=== PATIENT | female | born 1945 ===

== ENCOUNTER 2025-03-28 15:01 | Inpatient (IN) | payer OTHER ==
[~2025-03-28] VITALS: Ht 152.4 cm; Wt 90.7 kg
[~2025-03-28 15:01] MED LIST: AVIDOXY100 MG PO; DICLOFENAC SOD100 MG; INTESTINEX680 M1 PO; LEVOFLOXACIN500 MG PO; LISINOPRIL HCTZ; LISINOPRIL2.5 MG PO; METHOTREXATE2.5 MG; MICRO-K 1010 MEQ PO; NEURONTIN300 MG; PERCOCET 5/321 UDTAB; PLAVIX75 MG; PREDNISONE5 MG/DOSE-; PROTEINEX-18 LI30 ML PO; SPIRONOLACTONE25 MG; SYNTHROID200 MCG; TENORMIN25 MG; TRAMADOL HCL-AP1 TAB; VYTORIN 10/40 T1 TAB; ZANAFLEX2 MG
[2025-03-28] MEDS ORDERED: NOREPINEPHRINE BITARTRATE 1 MG/ML AMPUL IV ONE (16:10)
[2025-03-28 16:30] LABS: BASO % 0.6 % (0.1-1.2); EOS # 0.81 (0.04-0.54); EOS % 5.6 % (0.7-7.0); LYMPH # 1.24 (1.18-3.74); LYMPH % 8.6 % (19.3-53.1); MEAN PLATELET VOLUME 9.50 fl (9.4-12.4); MONO # 1.91 (0.24-0.82); NEUT # 10.31 (1.56-6.13); NEUT % 71.2 % (34.0-71.1); RED CELL DISTRIBUTION WIDTH 18.4 % (11.6-14.4)
[2025-03-28] MEDS ORDERED: NOREPINEPHRINE BITARTRATE 4 MG in DEXTROSE 5 % IN WATER 250 ML IV SCH (16:30)
[2025-03-28 16:36] LABS: MONO % 13.2 % (4.7-12.5)
[2025-03-28 16:41] LABS: ERYTHROCYTE SEDIMENTATION RATE > 130 mm/hr (0-30)
[2025-03-28] MEDS ORDERED: 0.9 % SODIUM CHLORIDE 500 ML IV ONE (16:45)
[2025-03-28] MEDS ORDERED: DEXTROSE 50 % IN WATER 0.5 G/ML DISP.SYRIN IV PRN (16:45)
[2025-03-28] MEDS ORDERED: FAMOTIDINE/PF 20 MG/2 ML VIAL IV PUSH ONE (16:45)
[2025-03-28] MEDS ORDERED: INSULIN LISPRO 1,000 UNIT/10 ML UNITS SUBCUTANEO PRN (16:45)
[2025-03-28] MEDS ORDERED: LEVALBUTEROL HCL 1.25 MG/3 ML SOLUTION IH SCH (16:45)
[2025-03-28] MEDS ORDERED: METHYLPREDNISOLONE SOD SUCC 125 MG VIAL IV ONE (16:45)
[2025-03-28] MEDS ORDERED: IPRATROPIUM BROMIDE 0.5 MG/2.5 ML AMPUL.NEB IH SCH (16:45)
[2025-03-28] MEDS ORDERED: LEVALBUTEROL HCL 1.25 MG/3 ML SOLUTION IH ONE (16:47)
[2025-03-28] MEDS ORDERED: IPRATROPIUM BROMIDE 0.5 MG/2.5 ML AMPUL.NEB IH ONE (16:48)
[2025-03-28 16:53] LABS: INR 1.27
[2025-03-28] MEDS ORDERED: METHYLPREDNISOLONE SOD SUCC 125 MG VIAL ONE (16:55)
[2025-03-28] MEDS ORDERED: FAMOTIDINE/PF 20 MG/2 ML VIAL ONE (16:55)
[2025-03-28] MEDS ORDERED: LEVALBUTEROL HCL 0.63 MG/3 ML SOLUTION IH SCH (17:00)
[2025-03-28 17:18] LABS: ABG PH 7.443 (7.35-7.45)
[2025-03-28 17:19] LABS: ABG PO2 139.3 mmHg (80-100); BICARBONATE 32.2 mmol/l (23-25); o2 32 %
[2025-03-28 17:38] LABS: ALT/SGPT 23.0 U/L (12-78); AST/SGOT 115.0 U/L (15-37); BILIRUBIN TOTAL 0.52 mg/dL (0.3-1.2); BUN CREA RATIO 16.0 (7.0-25.0); CREATININE SERUM 2.01 mg/dL (0.55-1.02); GFR 23.77; GLOBULINA 4.1 G/DL (2.4-3.5); GLUCOSE FASTING 143.0 mg/dL (65-100); OSMOLALITY SERUM 284.0 MOSM/KG (275-295)
[2025-03-28 17:38] LABS: URINE APPEARANCE Cloudy; URINE BILIRRUBIN Small (NEGATIVE); URINE BLOOD Large; URINE COLOR Dark Yellow; URINE KETONE Trace (NEGATIVE); URINE LEUKOCYTE Moderate; URINE NITRATE Negative; URINE UROBILINOGEN 1.0 E.U./dl
[2025-03-28 17:42] LABS: URINE BACTERIA 465.5 uL (0.0-1933); URINE EPITHELIAL CELLS 22.9 uL (0.0-38.8); URINE WBC 114.7 uL (0.0-23.2)
[2025-03-28 17:45] LABS: CKMB 14.3 NG/ML (0.5-3.6); PHOSPHOKINASE CREATININE 2134.0 U/L (26-192)
[2025-03-28 17:51] LABS: URINE CAST > 21.83 uL (0.0-1.40); URINE GLUCOSE 100 MG/DL (NEGATIVE); URINE PROTEIN 100 (NEGATIVE)
[2025-03-28 18:09] LABS: URINE MUCUS SCANT
[2025-03-28 18:10] LABS: TYPE CELLS SQUAMOUS; URINE CRYSTALS FEW /HPF; URINE RBC 297.7 uL (0.0-20.8)
[2025-03-28] MEDS ORDERED: ALBUMIN HUMAN-25 0.25GM/ML (50ML) VIAL IV ONE (19:30)
[2025-03-28] MEDS ORDERED: CEFTRIAXONE SODIUM 2,000 MG VIAL IV ONE (19:30)
[2025-03-28] MEDS ORDERED: CEFTRIAXONE SODIUM 2,000 MG VIAL ONE (19:55)
[2025-03-29] VITALS (11 sets, daily range): BP systolic 109–144; BP diastolic 54–87; O2SAT 98–100
[2025-03-29] MEDS ORDERED: NOREPINEPHRINE BITARTRATE 1 MG/ML AMPUL IV ONE (01:11)
[2025-03-29] MEDS ORDERED: CHLORHEXIDINE GLUCONATE 120 ML BOTTLE TOP ONE (07:58)
[2025-03-29] MEDS ORDERED: PANTOPRAZOLE SODIUM 40 MG in 0.9 % SODIUM CHLORIDE 8 ML IV PUSH SCH (12:25)
[2025-03-29] MEDS ORDERED: ENOXAPARIN SODIUM 30 MG/0.3 ML SYRINGE SUBCUTANEO SCH (12:26)
[2025-03-29] MEDS ORDERED: 0.9 % SODIUM CHLORIDE 1,000 ML IV SCH (12:30)
[2025-03-29] MEDS ORDERED: ACETAMINOPHEN 325 MG TABLET PO PRN (12:30)
[2025-03-29] MEDS ORDERED: IPRATROPIUM/ALBUTEROL SULFATE 3 ML AMPUL.NEB IH SCH (12:39)
[2025-03-29] MEDS ORDERED: AMINO ACIDS/PROTEIN HYDROLYS 30 ML BLIST.PACK PO SCH (12:44)
[2025-03-29] MEDS ORDERED: GABAPENTIN 300 MG CAPSULE PO PRN (12:45)
[2025-03-29] MEDS ORDERED: PIPERACILLIN/TAZOBACTAM SODIUM 3.375 GM VIAL IV SCH (13:00)
[2025-03-29 14:58] LABS: CKMB 6.2 NG/ML (0.5-3.6); PHOSPHOKINASE CREATININE 686.0 U/L (26-192)
[2025-03-29] MEDS ORDERED: IPRATROPIUM/ALBUTEROL SULFATE 3 ML AMPUL.NEB IH ONE (16:55)
[2025-03-29] MEDS ORDERED: FLUCONAZOLE IN NACL,ISO-OSM 50 ML IV SCH (16:57)
[2025-03-29] MEDS ORDERED: MEROPENEM 500 MG/VIAL VIAL IV SCH (17:00)
[2025-03-29] MEDS ORDERED: LACTOBACILLUS ACIDOPHILUS 1 CAP CAP PO SCH (17:00)
[2025-03-29] MEDS ORDERED: ALBUMIN HUMAN-25 0.25GM/ML (50ML) VIAL IV SCH (17:00)
[2025-03-29] MEDS ORDERED: LINEZOLID IN DEXTROSE 5% 300 ML IV SCH (21:00)
[2025-03-30] VITALS (16 sets, daily range): BP systolic 80–134; BP diastolic 42–87; O2SAT 98–100
[2025-03-30] MEDS ORDERED: LEVOTHYROXINE SODIUM 100 MCG TABLET PO ONE (00:45)
[2025-03-30] MEDS ORDERED: LEVOTHYROXINE SODIUM 100 MCG TABLET PO SCH (06:00)
[2025-03-30 06:25] LABS: BASO % 0.2 % (0.1-1.2); EOS # 0.00 (0.04-0.54); EOS % 0.0 % (0.7-7.0); LYMPH # 0.81 (1.18-3.74); LYMPH % 6.8 % (19.3-53.1); MEAN PLATELET VOLUME 9.50 fl (9.4-12.4); MONO # 1.35 (0.24-0.82); MONO % 11.3 % (4.7-12.5); NEUT # 9.65 (1.56-6.13); NEUT % 80.8 % (34.0-71.1); RED CELL DISTRIBUTION WIDTH 17.7 % (11.6-14.4)
[2025-03-30 07:07] LABS: ALT/SGPT 26.0 U/L (12-78); AST/SGOT 56.0 U/L (15-37); BILIRUBIN TOTAL 0.4 mg/dL (0.3-1.2); BUN CREA RATIO 24.0 (7.0-25.0); CREATININE SERUM 1.54 mg/dL (0.55-1.02); GFR 32.33; GLOBULINA 4.1 G/DL (2.4-3.5); GLUCOSE FASTING 179.0 mg/dL (65-100); OSMOLALITY SERUM 293.0 MOSM/KG (275-295)
[2025-03-30] MEDS ORDERED: Cyanocobalamin/Mecobalamin 1 TAB.SL SL NR (15:30)
[2025-03-30] MEDS ORDERED: FLUCONAZOLE IN NACL,ISO-OSM 2 MG/ML ML IV SCH (17:00)
[2025-03-30] MEDS ORDERED: SOD FERRIC GLUC COMPLX/SUCROSE 62.5 MG in 0.9 % SODIUM CHLORIDE 50 ML IV SCH (17:00)
[2025-03-30] MEDS ORDERED: MULTIVIT INFUSN,ADULT 4,VIT K 10 ML VIAL IV SCH (17:00)
[2025-03-30] MEDS ORDERED: METHYLPREDNISOLONE SOD SUCC 40 MG VIAL IV SCH (21:00)
[2025-03-31] VITALS (7 sets, daily range): BP systolic 71–152; BP diastolic 29–81; O2SAT 98–100
[2025-03-31] MEDS ORDERED: HYDROCORTISONE SODIUM SUCC/PF 200 MG in 0.9 % SODIUM CHLORIDE 250 ML IV SCH (07:15)
[2025-03-31] MEDS ORDERED: Cyanocobalamin/Mecobalamin 1 TAB.SL SL SCH (09:00)
[2025-03-31] MEDS ORDERED: MIDODRINE HCL 5 MG TABLET PO SCH (09:00)
[2025-04-01 01:56] LABS: BASO % 0.1 % (0.1-1.2); EOS # 0.00 (0.04-0.54); EOS % 0.0 % (0.7-7.0); LYMPH # 0.50 (1.18-3.74); LYMPH % 6.9 % (19.3-53.1); MEAN PLATELET VOLUME 9.20 fl (9.4-12.4); MONO # 0.73 (0.24-0.82); MONO % 10.1 % (4.7-12.5); NEUT # 5.95 (1.56-6.13); NEUT % 82.3 % (34.0-71.1); RED CELL DISTRIBUTION WIDTH 18.6 % (11.6-14.4)
[2025-04-01 02:21] LABS: ALT/SGPT 45.0 U/L (12-78); AST/SGOT 96.0 U/L (15-37); BILIRUBIN TOTAL 0.49 mg/dL (0.3-1.2); BUN CREA RATIO 32.0 (7.0-25.0); CREATININE SERUM 1.03 mg/dL (0.55-1.02); GFR 51.43; GLOBULINA 3.4 G/DL (2.4-3.5); PHOSPHOKINASE CREATININE 83.0 U/L (26-192)
[2025-04-01 02:22] LABS: GLUCOSE FASTING 209.0 mg/dL (65-100); OSMOLALITY SERUM 293.0 MOSM/KG (275-295)
[2025-04-01 04:15] VITALS: BP 136/69; O2SAT 100
[2025-04-01] MEDS ORDERED: LEVOTHYROXINE SODIUM 100 MCG/VIAL VIAL IV STA (07:21)
[2025-04-01 07:41] VITALS: BP 151/74; O2SAT 100
[2025-04-01] MEDS ORDERED: INSULIN NPH HUMAN ISOPHANE 1,000 UNITS/10 ML UNITS SUBCUTANEO SCH (09:00)
[2025-04-01 12:07] VITALS: BP 148/67; O2SAT 100
[2025-04-01] MEDS ORDERED: POTASSIUM CHLORIDE IN WATER 100 ML IV NR (14:30)
[2025-04-01 15:00] VITALS: BP 169/71; O2SAT 100
[2025-04-01 20:00] VITALS: BP 157/97; O2SAT 100
[2025-04-01 23:27] VITALS: BP 171/91; O2SAT 100
[2025-04-02] VITALS (7 sets, daily range): BP systolic 145–166; BP diastolic 71–82; O2SAT 100
[2025-04-02 08:30] LABS: BUN CREA RATIO 35.0 (7.0-25.0); CREATININE SERUM 0.74 mg/dL (0.55-1.02); GFR 75.32; GLUCOSE FASTING 155.0 mg/dL (65-100); OSMOLALITY SERUM 293.0 MOSM/KG (275-295)
[2025-04-02] MEDS ORDERED: ZINC OXIDE 30 GM,NYSTATIN 15 GM,SILVER SULFADIAZINE 50 GM TOP SCH ×2 (11:37→17:00)
[2025-04-02] MEDS ORDERED: CHOLESTYRAMINE/ASPARTAME LIGHT 4 G/PKT PACKET PO SCH (11:37)
[2025-04-02] MEDS ORDERED: MAGNESIUM SULFATE IN WATER 4 GM/100 ML PIGGYBACK IV NR (12:00)
[2025-04-02] MEDS ORDERED: LOPERAMIDE HCL 2 MG CAPSULE PO SCH (13:00)
[2025-04-02] MEDS ORDERED: HYDROCORTISONE SODIUM SUCC/PF 50 MG/ML ML IV SCH ×2 (17:00→21:00)
[2025-04-02] MEDS ORDERED: POTASSIUM PHOS,M-BASIC-D-BASIC 3 MM/ML VIAL IV NR (17:00)
[2025-04-02] MEDS ORDERED: POTASSIUM BICARBONATE/CIT AC 25 MEQ TABLET.EFF PO SCH (17:00)
[2025-04-03] VITALS (8 sets, daily range): BP systolic 102–176; BP diastolic 58–94; O2SAT 100
[2025-04-03] MEDS ORDERED: HYDROCORTISONE SODIUM SUCC/PF 50 MG/ML ML IV SCH (05:00)
[2025-04-03] MEDS ORDERED: SILVER SULFADIAZINE 50 GM JAR TOP ONE (08:37)
[2025-04-03 15:38] LABS: ob POSITIVE (NEGATIVE)
[2025-04-04 02:03] LABS: BASO % 0.1 % (0.1-1.2); EOS # 0.00 (0.04-0.54); EOS % 0.0 % (0.7-7.0); LYMPH # 0.86 (1.18-3.74); LYMPH % 10.1 % (19.3-53.1); MEAN PLATELET VOLUME 9.50 fl (9.4-12.4); MONO # 0.97 (0.24-0.82); MONO % 11.4 % (4.7-12.5); NEUT # 6.51 (1.56-6.13); NEUT % 76.9 % (34.0-71.1); RED CELL DISTRIBUTION WIDTH 18.1 % (11.6-14.4)
[2025-04-04 03:06] LABS: ALT/SGPT 55.0 U/L (12-78); AST/SGOT 55.0 U/L (15-37); BILIRUBIN TOTAL 1.17 mg/dL (0.3-1.2); BUN CREA RATIO 38.0 (7.0-25.0); CREATININE SERUM 0.69 mg/dL (0.55-1.02); GFR 81.65; GLOBULINA 2.2 G/DL (2.4-3.5)
[2025-04-04 03:23] LABS: GLUCOSE FASTING 211.0 mg/dL (65-100); OSMOLALITY SERUM 298.0 MOSM/KG (275-295)
[2025-04-04 04:00] VITALS: BP 141/71; O2SAT 100
[2025-04-04] MEDS ORDERED: HYDROCORTISONE SODIUM SUCC/PF 50 MG/ML ML IV SCH (05:00)
[2025-04-04 07:20] VITALS: BP 131/62; O2SAT 100
[2025-04-04] MEDS ORDERED: POTASSIUM CHLORIDE IN WATER 40 MEQ/100 ML PIGGYBAG IV SCH ×2 (08:00→17:00)
[2025-04-04] MEDS ORDERED: PREDNISONE 10 MG TABLET PO SCH (09:00)
[2025-04-04] MEDS ORDERED: POTASSIUM PHOS,M-BASIC-D-BASIC 15 MM in 0.9 % SODIUM CHLORIDE 250 ML IV ONE (11:00)
[2025-04-04] MEDS ORDERED: MAGNESIUM SULFATE IN WATER 4 GM/100 ML PIGGYBACK IV NR (12:00)
[2025-04-04 12:30] VITALS: BP 159/89; O2SAT 100
[2025-04-04] MEDS ORDERED: ONDANSETRON HCL 2 MG/ML VIAL ONE (12:44)
[2025-04-04] MEDS ORDERED: ONDANSETRON HCL 2 MG/ML VIAL IV SCH (13:00)
[2025-04-04] MEDS ORDERED: DIPHENHYDRAMINE HCL 50 MG/ML VIAL 1ML IV NR (16:30)
[2025-04-04] MEDS ORDERED: METHYLPREDNISOLONE SOD SUCC 40 MG VIAL IV NR (16:30)
[2025-04-04 17:55] VITALS: BP 141/76; O2SAT 100
[2025-04-04] MEDS ORDERED: POTASSIUM PHOS,M-BASIC-D-BASIC 15 MM in 0.9 % SODIUM CHLORIDE 250 ML IV NR (18:00)
[2025-04-04] MEDS ORDERED: MAGNESIUM SULFATE IN WATER 2 GM/50 ML PIGGYBAG IV NR (18:15)
[2025-04-04 20:07] VITALS: BP 116/52; O2SAT 98
[2025-04-04 23:31] VITALS: BP 126/58; O2SAT 100
[2025-04-05 04:00] VITALS: BP 135/58; O2SAT 100
[2025-04-05 06:54] LABS: BASO % 0.1 % (0.1-1.2); EOS # 0.01 (0.04-0.54); EOS % 0.1 % (0.7-7.0); LYMPH # 0.94 (1.18-3.74); LYMPH % 13.2 % (19.3-53.1); MEAN PLATELET VOLUME 10.50 fl (9.4-12.4); MONO # 0.95 (0.24-0.82); NEUT # 5.14 (1.56-6.13); NEUT % 72.2 % (34.0-71.1); RED CELL DISTRIBUTION WIDTH 18.2 % (11.6-14.4)
[2025-04-05 07:08] LABS: MONO % 13.3 % (4.7-12.5)
[2025-04-05 07:18] VITALS: BP 133/58; O2SAT 100
[2025-04-05] MEDS ORDERED: METHYLPREDNISOLONE SOD SUCC 40 MG VIAL IV SCH (09:00)
[2025-04-05 10:01] LABS: ALT/SGPT 52.0 U/L (12-78); AST/SGOT 41.0 U/L (15-37); BILIRUBIN TOTAL 1.44 mg/dL (0.3-1.2); BUN CREA RATIO 44.0 (7.0-25.0); CHOL HDL RATIO 3.2 (0-5.0); CREATININE SERUM 0.52 mg/dL (0.55-1.02); GFR 113.17; GLOBULINA 2.6 G/DL (2.4-3.5); GLUCOSE FASTING 91.0 mg/dL (65-100); HDL 40.0 mg/dl (40-60); LDL 72.0 mg/dl (0-130); OSMOLALITY SERUM 294.0 MOSM/KG (275-295); VLDL 16.0 (0-39)
[2025-04-05 15:38] VITALS: O2SAT 100
[2025-04-05 15:56] LABS: BUN CREA RATIO 37.0 (7.0-25.0); CHOL HDL RATIO 3.4 (0-5.0); CREATININE SERUM 0.67 mg/dL (0.55-1.02); GFR 84.47; GLUCOSE FASTING 175.0 mg/dL (65-100); HDL 39.0 mg/dl (40-60); LDL 75.0 mg/dl (0-130); OSMOLALITY SERUM 295.0 MOSM/KG (275-295); VLDL 20.0 (0-39)
[2025-04-05 15:58] LABS: COL EPI 182.0 SECONDS (82-175)
[2025-04-05 16:11] LABS: COL ADP 105.0 SECONDS (56-102)
[2025-04-05 16:36] LABS: INR 1.26
[2025-04-05] MEDS ORDERED: AA 3.31 %/D9.8W/FAT/E-LYTES 10 2,053 ML IV SCH (17:00)
[2025-04-05 20:00] VITALS: BP 168/83; O2SAT 100
[2025-04-05 23:23] VITALS: BP 144/66; O2SAT 100
[2025-04-06] VITALS (8 sets, daily range): BP systolic 107–167; BP diastolic 60–95; O2SAT 100
[2025-04-06 07:14] LABS: BASO % 0.1 % (0.1-1.2); EOS # 0.00 (0.04-0.54); EOS % 0.0 % (0.7-7.0); LYMPH # 0.65 (1.18-3.74); LYMPH % 9.7 % (19.3-53.1); MEAN PLATELET VOLUME 9.90 fl (9.4-12.4); MONO # 0.85 (0.24-0.82); NEUT # 5.06 (1.56-6.13); NEUT % 75.9 % (34.0-71.1); RED CELL DISTRIBUTION WIDTH 17.9 % (11.6-14.4)
[2025-04-06 07:27] LABS: MONO % 12.7 % (4.7-12.5)
[2025-04-06 08:04] LABS: FE 104.0 ug/dl (50-170)
[2025-04-06] MEDS ORDERED: MULTIVIT INFUSN,ADULT 4,VIT K 10 ML VIAL IV SCH (09:00)
[2025-04-06] MEDS ORDERED: SOD FERRIC GLUC COMPLX/SUCROSE 62.5 MG/5 ML AMPUL IV SCH (09:00)
[2025-04-06 09:06] LABS: FOLIC ACID 5.74 ng/ml (4.78-20)
[2025-04-06] MEDS ORDERED: FLUCONAZOLE 100 MG TABLET PO SCH (17:00)
[2025-04-06] MEDS ORDERED: DIPHENHYDRAMINE HCL 50 MG/ML VIAL 1ML IV STA (17:37)
[2025-04-06] MEDS ORDERED: DIPHENHYDRAMINE HCL 50 MG/ML VIAL 1ML IV PRN (17:45)
[2025-04-07] VITALS (12 sets, daily range): BP systolic 111–160; BP diastolic 55–91; O2SAT 98–100
[2025-04-07] MEDS ORDERED: METHYLPREDNISOLONE SOD SUCC 40 MG VIAL IV SCH (09:00)
[2025-04-07] MEDS ORDERED: hydrALAZINE HCL 20 MG VIAL IV PRN (14:30)
[2025-04-07] MEDS ORDERED: HYDROCORTISONE 29 G,NYSTATIN 30 GM TOP SCH (17:00)
[2025-04-08 04:00] VITALS: BP 123/66; O2SAT 100
[2025-04-08 07:33] VITALS: BP 140/72; O2SAT 100
[2025-04-08 08:07] LABS: BASO % 0.3 % (0.1-1.2); EOS # 0.03 (0.04-0.54); EOS % 0.3 % (0.7-7.0); LYMPH # 1.39 (1.18-3.74); LYMPH % 13.1 % (19.3-53.1); MEAN PLATELET VOLUME 11.20 fl (9.4-12.4); MONO # 1.50 (0.24-0.82); NEUT # 7.19 (1.56-6.13); NEUT % 67.8 % (34.0-71.1); RED CELL DISTRIBUTION WIDTH 17.4 % (11.6-14.4)
[2025-04-08 08:22] LABS: MONO % 14.2 % (4.7-12.5)
[2025-04-08 12:00] VITALS: BP 145/74; O2SAT 100
[2025-04-08 15:31] VITALS: BP 133/72; O2SAT 100
[2025-04-08 20:00] VITALS: BP 153/75; O2SAT 100
[2025-04-08 23:19] VITALS: BP 153/70; O2SAT 100
[2025-04-09 04:00] VITALS: BP 154/51; O2SAT 100
[2025-04-09 07:17] VITALS: BP 143/68; O2SAT 100
[2025-04-09 12:00] VITALS: BP 154/77; O2SAT 100
[2025-04-09 15:16] VITALS: BP 136/76; O2SAT 100
[2025-04-09] MEDS ORDERED: ALBUMIN HUMAN 100 ML VIAL IV SCH (17:00)
[2025-04-09 20:00] VITALS: BP 147/88; O2SAT 100
[2025-04-09 23:08] VITALS: BP 162/81
[2025-04-10 06:00] VITALS: BP 163/74; O2SAT 100
[2025-04-10 07:15] VITALS: BP 166/87; O2SAT 100
[2025-04-10 08:00] VITALS: BP 145/83; O2SAT 100
[2025-04-10] MEDS ORDERED: PREDNISONE 10 MG TABLET PO SCH (09:00)
[2025-04-10 09:01] LABS: BASO % 0.1 % (0.1-1.2); EOS # 0.31 (0.04-0.54); EOS % 3.4 % (0.7-7.0); LYMPH # 1.12 (1.18-3.74); LYMPH % 12.2 % (19.3-53.1); MEAN PLATELET VOLUME 11.30 fl (9.4-12.4); MONO # 1.18 (0.24-0.82); NEUT # 6.36 (1.56-6.13); NEUT % 69.0 % (34.0-71.1); RED CELL DISTRIBUTION WIDTH 17.2 % (11.6-14.4)
[2025-04-10 09:18] LABS: MONO % 12.8 % (4.7-12.5)
[2025-04-10 09:56] LABS: ALT/SGPT 120.0 U/L (12-78); AST/SGOT 64.0 U/L (15-37); BILIRUBIN TOTAL 1.57 mg/dL (0.3-1.2); BUN CREA RATIO 85.0 (7.0-25.0); CREATININE SERUM 0.34 mg/dL (0.55-1.02); GFR 184.79; GLOBULINA 1.8 G/DL (2.4-3.5); GLUCOSE FASTING 92.0 mg/dL (65-100); OSMOLALITY SERUM 287.0 MOSM/KG (275-295)
[2025-04-10 12:19] VITALS: BP 167/72; O2SAT 100
[2025-04-10] MEDS ORDERED: LISINOPRIL 5 MG TABLET PO NR (14:15)
[2025-04-10 15:15] VITALS: BP 161/72; O2SAT 100
[2025-04-10] MEDS ORDERED: DIPHENHYDRAMINE HCL 50 MG/ML VIAL 1ML IV SCH (16:00)
[2025-04-10] MEDS ORDERED: METHYLPREDNISOLONE SOD SUCC 40 MG VIAL IV SCH (16:00)
[2025-04-10] MEDS ORDERED: POTASSIUM PHOS,M-BASIC-D-BASIC 15 MM in 0.9 % SODIUM CHLORIDE 250 ML IV ONE (20:30)
[2025-04-10 23:00] VITALS: BP 149/64; O2SAT 100
[2025-04-11 04:20] VITALS: BP 156/83; O2SAT 98
[2025-04-11 07:57] VITALS: BP 164/86; O2SAT 70
[2025-04-11] MEDS ORDERED: LISINOPRIL 5 MG TABLET PO SCH (09:00)
[2025-04-11 12:00] VITALS: BP 161/76; O2SAT 100
[2025-04-11] MEDS ORDERED: MULTIVIT INFUSN,ADULT 4,VIT K 10 ML VIAL IV SCH (12:00)
[2025-04-11] MEDS ORDERED: 0.9 % SODIUM CHLORIDE 1,000 ML IV SCH (12:00)
[2025-04-11 15:19] VITALS: BP 168/81; O2SAT 100
[2025-04-11 20:07] VITALS: BP 151/90; O2SAT 100
[2025-04-11 21:45] VITALS: BP 160/85; O2SAT 100
[2025-04-12 02:49] VITALS: BP 177/95; O2SAT 98
[2025-04-12 06:17] LABS: BASO % 0.1 % (0.1-1.2); EOS # 0.00 (0.04-0.54); EOS % 0.0 % (0.7-7.0); LYMPH # 0.48 (1.18-3.74); LYMPH % 6.1 % (19.3-53.1); MEAN PLATELET VOLUME 11.40 fl (9.4-12.4); MONO # 0.44 (0.24-0.82); MONO % 5.6 % (4.7-12.5); NEUT # 6.78 (1.56-6.13); NEUT % 86.8 % (34.0-71.1); RED CELL DISTRIBUTION WIDTH 16.7 % (11.6-14.4)
[2025-04-12] MEDS ORDERED: LISINOPRIL 10 MG TABLET PO SCH (09:00)
[2025-04-12] MEDS ORDERED: PREDNISONE 5 MG TABLET PO SCH (09:00)
[2025-04-12 10:13] VITALS: BP 175/90; O2SAT 99
[2025-04-12 18:33] VITALS: BP 151/63; O2SAT 97
[2025-04-13 02:37] VITALS: BP 166/63; O2SAT 96
[2025-04-13 10:42] VITALS: BP 160/72; O2SAT 98
[2025-04-13] MEDS ORDERED: METOLAZONE 2.5 MG TABLET PO SCH (17:00)
[2025-04-13 18:23] VITALS: BP 153/83; O2SAT 100
[2025-04-14 02:37] VITALS: BP 165/92; O2SAT 95
[2025-04-14] MEDS ORDERED: LEVOTHYROXINE SODIUM 100 MCG/VIAL VIAL IV SCH (09:00)
[2025-04-14 10:26] VITALS: BP 145/85; O2SAT 98
[2025-04-14 13:06] VITALS: O2SAT 100
[2025-04-14 16:45] LABS: INR 1.14
[2025-04-14] MEDS ORDERED: PIPERACILLIN/TAZOBACTAM SODIUM 3.375 GM VIAL IV SCH (18:00)
[2025-04-14 18:01] VITALS: O2SAT 100
[2025-04-14 18:35] VITALS: BP 160/72
[2025-04-14 21:03] VITALS: O2SAT 97
[2025-04-15] VITALS (9 sets, daily range): BP systolic 131–148; BP diastolic 73–86; O2SAT 94–100
[2025-04-15] MEDS ORDERED: LEVOTHYROXINE SODIUM 150 MCG TABLET PO SCH (06:00)
[2025-04-15 06:59] LABS: BASO % 0.2 % (0.1-1.2); EOS # 0.61 (0.04-0.54); EOS % 6.8 % (0.7-7.0); LYMPH # 1.09 (1.18-3.74); LYMPH % 12.2 % (19.3-53.1); MEAN PLATELET VOLUME 10.70 fl (9.4-12.4); MONO # 0.69 (0.24-0.82); MONO % 7.7 % (4.7-12.5); NEUT # 6.36 (1.56-6.13); NEUT % 71.3 % (34.0-71.1); RED CELL DISTRIBUTION WIDTH 17.6 % (11.6-14.4)
[2025-04-15 07:50] LABS: ALT/SGPT 67.0 U/L (12-78); AST/SGOT 29.0 U/L (15-37); BILIRUBIN TOTAL 2.4 mg/dL (0.3-1.2); BUN CREA RATIO 65.0 (7.0-25.0); CREATININE SERUM 0.37 mg/dL (0.55-1.02); GFR 167.61; GLOBULINA 2.2 G/DL (2.4-3.5); GLUCOSE FASTING 93.0 mg/dL (65-100); LDH 283.0 U/L (84-246); OSMOLALITY SERUM 285.0 MOSM/KG (275-295)
[2025-04-15] MEDS ORDERED: MAGNESIUM SULFATE IN WATER 4 GM/100 ML PIGGYBACK IV NR (13:30)
[2025-04-15] MEDS ORDERED: POTASSIUM CHLORIDE IN WATER 100 ML IV NR (16:00)
[2025-04-16] VITALS (8 sets, daily range): BP systolic 91–113; BP diastolic 57–71; O2SAT 99–100
[2025-04-16] MEDS ORDERED: POTASSIUM CHLORIDE 20MEQ/100ML H2O PB IV SCH (12:00)
[2025-04-17 01:23] VITALS: BP 135/83; O2SAT 97
[2025-04-17 06:27] LABS: BASO % 0.2 % (0.1-1.2); EOS # 0.54 (0.04-0.54); EOS % 6.6 % (0.7-7.0); LYMPH # 1.48 (1.18-3.74); LYMPH % 18.1 % (19.3-53.1); MEAN PLATELET VOLUME 10.30 fl (9.4-12.4); MONO # 0.68 (0.24-0.82); MONO % 8.3 % (4.7-12.5); NEUT # 5.24 (1.56-6.13); NEUT % 64.3 % (34.0-71.1); RED CELL DISTRIBUTION WIDTH 17.6 % (11.6-14.4)
[2025-04-17 07:06] LABS: ALT/SGPT 56.0 U/L (12-78); AST/SGOT 31.0 U/L (15-37); BILIRUBIN TOTAL 2.01 mg/dL (0.3-1.2); BUN CREA RATIO 68.0 (7.0-25.0); CREATININE SERUM 0.47 mg/dL (0.55-1.02); GFR 127.18; GLOBULINA 2.5 G/DL (2.4-3.5); GLUCOSE FASTING 94.0 mg/dL (65-100); OSMOLALITY SERUM 282.0 MOSM/KG (275-295)
[2025-04-17] MEDS ORDERED: PREDNISONE 10 MG TABLET PO SCH (09:00)
[2025-04-17 09:25] VITALS: O2SAT 100
[2025-04-17 09:48] VITALS: BP 117/67; O2SAT 100
[2025-04-17 13:18] VITALS: O2SAT 90
[2025-04-17] MEDS ORDERED: AMOX-CLAV 875-1 EAC1 PO (14:44)
[2025-04-17] MEDS ORDERED: Diflucan 100MG TABLE PO (14:44)
[2025-04-17] MEDS ORDERED: PROTONIX40 MG PO (14:50)
[2025-04-17] MEDS ORDERED: INTESTINEX680 M1 PO (14:50)
[2025-04-17] MEDS ORDERED: LEVOTHYROXINE150 MCG PO (14:50)
[2025-04-17] MEDS ORDERED: GABAPENTIN300 MG PO (14:50)
[2025-04-17] MEDS ORDERED: ELIQUIS2.5 MG PO (14:50)
[2025-04-17] MEDS ORDERED: FAMOTIDINE40 MG PO (14:50)
[2025-04-17] MEDS ORDERED: Neurin-Sl Tablet Sl SL (14:50)
[2025-04-17] MEDS ORDERED: PROTEINEX-18 LI30 ML PO (14:50)
[2025-04-17] MEDS ORDERED: PREDNISONE10 MG PO (14:50)
[2025-04-17] MEDS ORDERED: INTEGRA PLUS C1 EACH PO (14:50)
[2025-04-17] MEDS ORDERED: LISINOPRIL10 MG PO (14:50)
[2025-04-17] MEDS ORDERED: APIXABAN 2.5 MG TABLET PO SCH (17:00)
== END 2025-04-17 17:39 | disposition home or self-care (01) | DRG 871 ==
LOC: ER 15:01 → ICU-2 03-29 12:21 → ICU 03-29 12:21 → MEDJ 04-11 21:00
PROVIDERS: General Practice; Internal Medicine; Internal Medicine Hematology & Oncology; Internal Medicine Infectious Disease; Internal Medicine Nephrology; ADMIT Internal Medicine; ATTEND Internal Medicine
PROC: BB24ZZZ Computerized Tomography (CT Scan) of Bilateral Lungs (ICD-10-PCS; principal; 2025-03-28)
PROC: BW28ZZZ Computerized Tomography (CT Scan) of Head (ICD-10-PCS; 2025-03-28)
PROC: 3E0F7GC Introduction of Other Therapeutic Substance into Respiratory Tract, Via Natural or Artificial Opening (ICD-10-PCS; 2025-03-29)
PROC: B246ZZZ Ultrasonography of Right and Left Heart (ICD-10-PCS; 2025-03-30)
PROC: 0JB73ZZ Excision of Back Subcutaneous Tissue and Fascia, Percutaneous Approach (ICD-10-PCS; 2025-03-30)
PROC: 02HV33Z Insertion of Infusion Device into Superior Vena Cava, Percutaneous Approach (ICD-10-PCS; 2025-03-31)
PROC: 30233N1 Transfusion of Nonautologous Red Blood Cells into Peripheral Vein, Percutaneous Approach (ICD-10-PCS; 2025-03-31)
PROC: 8E0ZXY6 Isolation (ICD-10-PCS; 2025-04-01)
PROC: BW21YZZ Computerized Tomography (CT Scan) of Abdomen and Pelvis using Other Contrast (ICD-10-PCS; 2025-04-04)
PROC: 0JB73ZZ Excision of Back Subcutaneous Tissue and Fascia, Percutaneous Approach (ICD-10-PCS; 2025-04-05)
PROC: B54MZZZ Ultrasonography of Right Upper Extremity Veins (ICD-10-PCS; 2025-04-08)
PROC: 30233L1 Transfusion of Nonautologous Fresh Plasma into Peripheral Vein, Percutaneous Approach (ICD-10-PCS; 2025-04-11)
PROC: 0JB73ZZ Excision of Back Subcutaneous Tissue and Fascia, Percutaneous Approach (ICD-10-PCS; 2025-04-12)
PROC: BW28ZZZ Computerized Tomography (CT Scan) of Head (ICD-10-PCS; 2025-04-14)
PROC: 4A12X4Z Monitoring of Cardiac Electrical Activity, External Approach (ICD-10-PCS; 2025-04-14)
DX: A41.9 Sepsis, unspecified organism (principal); J96.00 Acute respiratory failure, unspecified whether with hypoxia or hypercapnia; N17.8 Other acute kidney failure; N39.0 Urinary tract infection, site not specified; M62.82 Rhabdomyolysis; L03.113 Cellulitis of right upper limb; L89.152 Pressure ulcer of sacral region, stage 2; E86.0 Dehydration; Z72.0 Tobacco use; I95.89 Other hypotension; E03.8 Other specified hypothyroidism; I12.9 Hypertensive chronic kidney disease with stage 1 through stage 4 chronic kidney disease, or unspecified chronic kidney disease; N18.9 Chronic kidney disease, unspecified; E88.09 Other disorders of plasma-protein metabolism, not elsewhere classified; D64.9 Anemia, unspecified; B95.2 Enterococcus as the cause of diseases classified elsewhere; B96.1 Klebsiella pneumoniae [K. pneumoniae] as the cause of diseases classified elsewhere; L08.89 Other specified local infections of the skin and subcutaneous tissue; E87.6 Hypokalemia; E78.49 Other hyperlipidemia